=== PATIENT | female | born 1935 | race Caucasian/White ===

== ENCOUNTER 2021-05-16 10:25 | Inpatient (IN) | payer MEDICARE, OTHER ==
[~2021-05-16] VITALS: Ht 167.6 cm; Wt 61.5 kg
[2021-05-16 10:45] LABS: BASO # 0.1 (0.0-0.2); BASO % 0.8 % (0.0-2.0); EOS # 0.4 (0.0-0.7); EOS % 5.3 % (0-4.0); GRAN # 3.8 (1.4-6.5); GRAN % 57.3 % (42.2-75.2); HEMATOCRIT 38.2 % (37.0-47.0); HEMOGLOBIN 12.6 g/dl (12.5-16.0); LYMPH # 1.8 (1.2-3.4); LYMPH % 27.5 % (20.0-51.0); MEAN CELL VOLUME 97 fl (80.0-100.0); MEAN CORPUSCULAR HEMOGLOBIN 32 pg (27.0-31.0); MEAN CORPUSCULAR HGB CONC 33 g/dl (33.0-37.0); MEAN PLATELET VOLUME 12.1 fl (7.4-10.4); MONO # 0.6 (0.1-0.6); MONO % 8.9 % (1.7-9.3); PLATELET COUNT 147 K/mm3 (130-400); RED BLOOD COUNT 3.92 M/mm3 (4.10-5.30); REDCELL DISTRIBUTION WIDTH-CV 12.7 % (11.5-14.5)
[2021-05-16 10:51] LABS: INR 1.1 (0.8-3.0); PROTHROMBIN TIME 11.8 SECONDS (9.7-12.8)
[2021-05-16 11:03] LABS: BILIRUBIN,TOTAL 0.6 mg/dL (0.0-1.0); C-REACTIVE PROTEIN 0.6 mg/dL (0.0-0.9); CALCIUM 9.4 mg/dL (8.4-10.2); CREATININE, serum 1.12 (0.52-1.25); TOTAL PROTEIN 6.7 gm/dL (6.4-8.2)
[2021-05-16] MEDS ORDERED: ATIVAN 0.50.5 MG/TAB PO (11:13)
[2021-05-16] MEDS ORDERED: CRESTOR20 MG PO (11:13)
[2021-05-16] MEDS ORDERED: COZAAR100 MG PO (11:14)
[2021-05-16] MEDS ORDERED: ARICEPT10 MG PO (11:14)
[2021-05-16] MEDS ORDERED: CALCIUM 600 MG1 EAC2 PO (11:15)
[2021-05-16] MEDS ORDERED: K-PHOS ORIGINA500 MG PO (11:16)
[2021-05-16 11:30] LABS: POTASSIUM 4.2 mmol/L (3.4-5.0)
[2021-05-16] MEDS ORDERED: EPA FISH OIL1 SGL PO (13:56)
[2021-05-16 15:55] VITALS: BP 156/96; PULSE 81; TEMP 98.2
[2021-05-16 17:48] LABS: COLLECTION METHOD CATHETER
[2021-05-16 17:55] LABS: LACTIC ACID 1.1 mmol/L (0.4-2.0)
[2021-05-16 17:57] LABS: MUCOUS Present /lpf; PH 6 (5-8); SQUAMOUS EPITHELIAL None Seen /hpf; URINE APPEARANCE Hazy; URINE BACTERIA Rare /hpf; URINE BILIRUBIN Negative (NEGATIVE); URINE BLOOD Negative (NEGATIVE); URINE COLOR Yellow; URINE GLUCOSE Negative (NEGATIVE); URINE KETONE Negative (NEGATIVE); URINE LEUKOCYTE ESTERASE Negative (NEGATIVE); URINE NITRATE Negative (NEGATIVE); URINE PROTEIN(semi-quant) Negative (NEGATIVE); URINE RBC 0-2 /hpf; URINE UROBILINOGEN Negative (NEGATIVE)
[2021-05-16 18:09] LABS: TRICYCLIC ANTIDEPRESS URINE NEGATIVE
--- NOTE | 2021-05-16 19:45 | NUR ---
Patient admitted this afternoon. Patient has mostly slept. Arouable to touch, not voice. She does not follow commands. Attempted to get patient to bedside commode 2 assist very weak. did not void. Ua obtained via straight cath. Ekg done, labs drawn with 2 assist. combative at times. She does not like to be touched. Her supportive spouse at bedside. high fall risk protocol followed. rounded, hospitalist consulted & notifed about consult. Orders obtained. Critical troponin called to Sara. Bedside report to Leena BOLES
[2021-05-16 20:15] VITALS: BP 145/99; PULSE 92; TEMP 101.2
--- NOTE | 2021-05-16 21:00 | NUR ---
PT UNABLE TO TAKE ATORVASTATIN, REMAINS TOO SLEEPY. DID WAKE UP BRIEFLY AND SQUEEZE THIS NURSES HAND. HAS SL TO LEFT UPPER ARM, FLUSHED WELL. LOVENOX GIVEN ORDERED. BED ALARM ON.
--- NOTE | 2021-05-16 22:45 | NUR ---
REPORTED ELEVATED TROPONIN TO CHIKI LEDESMA, ORDER FOR CARDIOLOGY CONSULT.
--- NOTE | 2021-05-16 23:13 | NUR ---
DR ARAYA NOTIFIED OF CONSULT. NEW ORDERS RECEIVED.
[2021-05-16 23:51] VITALS: BP 120/100; PULSE 92; TEMP 100.8
[2021-05-17] VITALS (8 sets, daily range): BP systolic 130–146; BP diastolic 57–110; PULSE 60–97; TEMP 97.8–99.5
--- NOTE | 2021-05-17 00:43 | NUR ---
PT HAS HAD ELEVATED TEMP, CRUSHED TYLENOL 650MG AND PLACED IN APPLESAUCE, PT TAKES WITHOUT PROBLEM.
--- NOTE | 2021-05-17 01:30 | NUR ---
ASA GIVEN IN APPLESAUCE, PT TAKES WITHOUT PROBLEM.
--- NOTE | 2021-05-17 06:00 | NUR ---
HAS BEEN RESTING THIS SHIFT. NOT IMPULSIVE, BED ALARM ON. SL REMAINS TO LEFT UPPER ARM. HAS HAD SCANT ORAL INTAKE.
[2021-05-17 07:01] LABS: BASO % 0.5 % (0.0-2.0); EOS # 0.1 (0.0-0.7); EOS % 0.9 % (0-4.0); GRAN % 64.6 % (42.2-75.2); HEMATOCRIT 39.1 % (37.0-47.0); HEMOGLOBIN 12.8 g/dl (12.5-16.0); LYMPH # 1.7 (1.2-3.4); LYMPH % 22.3 % (20.0-51.0); MEAN CELL VOLUME 98 fl (80.0-100.0); MEAN CORPUSCULAR HEMOGLOBIN 32 pg (27.0-31.0); MEAN CORPUSCULAR HGB CONC 33 g/dl (33.0-37.0); MEAN PLATELET VOLUME 12.8 fl (7.4-10.4); MONO # 0.9 (0.1-0.6); MONO % 11.3 % (1.7-9.3); PLATELET COUNT 147 K/mm3 (130-400); REDCELL DISTRIBUTION WIDTH-CV 12.7 % (11.5-14.5)
[2021-05-17 07:13] LABS: ALBUMIN 3.9 gm/dL (3.5-5.0); BILIRUBIN,TOTAL 0.6 mg/dL (0.0-1.0); CALCIUM 9.2 mg/dL (8.4-10.2); CREATININE, serum 1.21 (0.52-1.25); POTASSIUM 4.6 mmol/L (3.4-5.0); TOTAL PROTEIN 6.7 gm/dL (6.4-8.2)
[2021-05-17 07:32] LABS: TROPONIN-I 0.139 ng/mL (0.000-0.035)
--- NOTE | 2021-05-17 08:04 | NUR ---
CRITICAL TROPONIN CALLED TO [facility]
--- NOTE | 2021-05-17 14:18 | NUR ---
dry dip worker met with patient's spouse and called son, Azar [phone] to discuss discharge planning. Patient lives with spouse, who is her caregiver, and family is supportive of care. Worker provided information on patient's level of care and that patient is currently a 3 person transfer to the bathroom. Azar will talk with his siblings and father and rack worker with their wishes. Worker provided information on available nursing facilities in [facility] and private pay agency assistance. Physical and occupational therapies are working with patient.
--- NOTE | 2021-05-17 19:27 | NUR ---
Patient resting in bed. She was able to take po medication crushed today with pudding, she preferred over applesauce. Patient did seem to cough with drinking water. Patient called out to go the bathroom multiple times today. Assist to bedside commode 3 assist. Total assist need. She never voided on commode, but was incontinent of urine. She had a BM today as well. hygiene provided. Patient MRI completed this afternoon. Ativan PRN given prior to relax patient. Patient did not have Lumbar puncute today due MRI findings. did review results with patient . Patient does have noted weakness to left side. Patient hits at staff only with right arm. High fall risk protocol followed today. Alarms on. Bedside report to Leena.
--- NOTE | 2021-05-17 20:15 | NUR ---
PT AWAKE, TAKING OFF HER GOWN AND TELEMETRY. PLACED BACK IN GOWN AND MITTS APPLIED. PT UNSURE WHERE SHE IS, REORIENTATION ATTEMPTED. BED ALARM ON. SL TO LEFT UPPER ARM INTACT.
--- NOTE | 2021-05-17 20:47 | NUR ---
PT REMAINS AGITATED. HS MEDS GIVEN CRUSHED IN VANILLA PUDDING, TAKES WITHOUT CHOKING. ATIVAN 0.25MG IVP GIVEN FOR ANXIETY.
--- NOTE | 2021-05-17 22:00 | NUR ---
PT MORE CALM, MITTS OFF AT THIS TIME.
[2021-05-18 04:30] VITALS: BP 112/50; PULSE 56; TEMP 98.1
--- NOTE | 2021-05-18 05:00 | NUR ---
PT AWAKE, TAKING OFF GOWN AND TELEMETRY. INCONTINENT OF URINE, KERON CARE GIVEN AND NEW ATTENDS ON. PT RESISTIVE WITH STAFF, HITTING AND KICKING WITH RT LEG. PLACED IN MITTS.
--- NOTE | 2021-05-18 07:00 | NUR ---
PT RESTING QUIETLY. BED ALARM ON.
[2021-05-18 07:09] LABS: BASO # 0.1 (0.0-0.2); BASO % 0.8 % (0.0-2.0); EOS # 0.2 (0.0-0.7); EOS % 2.7 % (0-4.0); GRAN # 4.4 (1.4-6.5); GRAN % 61.6 % (42.2-75.2); HEMATOCRIT 39.2 % (37.0-47.0); HEMOGLOBIN 12.9 g/dl (12.5-16.0); LYMPH # 1.7 (1.2-3.4); LYMPH % 23.7 % (20.0-51.0); MEAN CELL VOLUME 98 fl (80.0-100.0); MEAN CORPUSCULAR HEMOGLOBIN 32 pg (27.0-31.0); MEAN CORPUSCULAR HGB CONC 33 g/dl (33.0-37.0); MEAN PLATELET VOLUME 12.3 fl (7.4-10.4); MONO # 0.8 (0.1-0.6); MONO % 11.1 % (1.7-9.3); PLATELET COUNT 123 K/mm3 (130-400); RED BLOOD COUNT 4.01 M/mm3 (4.10-5.30); REDCELL DISTRIBUTION WIDTH-CV 12.8 % (11.5-14.5)
[2021-05-18 07:30] LABS: CALCIUM 8.7 mg/dL (8.4-10.2); CREATININE, serum 1.12 (0.52-1.25)
[2021-05-18 08:15] VITALS: BP 140/92; PULSE 61; TEMP 98.2
--- NOTE | 2021-05-18 08:48 | NUR ---
Radiology in for carotid US
--- NOTE | 2021-05-18 09:00 | NUR ---
Patient in bed resting. Mitts on. Attempts to swing at staff during assessment. Refusing breakfast. Denies further needs at this time.
--- NOTE | 2021-05-18 10:49 | NUR ---
Updated spouse on patient.
[2021-05-18 11:43] VITALS: BP 148/83; PULSE 75; TEMP 98.1
--- NOTE | 2021-05-18 11:56 | NUR ---
Patient up to [facility], x 3 assist.
--- NOTE | 2021-05-18 13:16 | NUR ---
Hospitalist and team in to see patient
--- NOTE | 2021-05-18 14:01 | NUR ---
Patient's sonAzar, calls nursing home social worker and states spouse and the family wish for skilled care upon discharge and desire [facility] and [facility]. [facility] states they cannot accept patient. Awaitng screening from [facility].
[2021-05-18 16:34] VITALS: BP 132/57; PULSE 72; TEMP 97.7
--- NOTE | 2021-05-18 17:15 | NUR ---
Dr. Baird in to see patient.
--- NOTE | 2021-05-18 19:06 | NUR ---
Patient doing well throughout the day. Spouse at bedside. Patient will occassionally repeat questions. Mitts off throughout the day. Has been resting intermittently through the day. No further needs at this time. reported off to production supervisor off shift.
[2021-05-18 19:44] VITALS: BP 96/52; PULSE 87; TEMP 97.5
--- NOTE | 2021-05-18 22:00 | NUR ---
Pt. laying in bed. PT. is alert and confused. Pt. does not appear to be in pain per FLACC. INT to lt. upper arm patent. Pericare provided at this time. Pt. repositioned for comfort.
[2021-05-19 00:07] VITALS: BP 115/60; PULSE 65; TEMP 98.2
[2021-05-19 04:46] VITALS: BP 109/70; PULSE 77; TEMP 97.5
[2021-05-19 06:56] LABS: BASO % 0.6 % (0.0-2.0); EOS # 0.1 (0.0-0.7); EOS % 1.2 % (0-4.0); GRAN # 4.8 (1.4-6.5); GRAN % 71.4 % (42.2-75.2); HEMATOCRIT 37.6 % (37.0-47.0); HEMOGLOBIN 12.4 g/dl (12.5-16.0); LYMPH # 1.1 (1.2-3.4); MEAN CELL VOLUME 96 fl (80.0-100.0); MEAN CORPUSCULAR HEMOGLOBIN 32 pg (27.0-31.0); MEAN CORPUSCULAR HGB CONC 33 g/dl (33.0-37.0); MEAN PLATELET VOLUME 12.5 fl (7.4-10.4); MONO # 0.6 (0.1-0.6); MONO % 9.6 % (1.7-9.3); PLATELET COUNT 142 K/mm3 (130-400); RED BLOOD COUNT 3.91 M/mm3 (4.10-5.30); REDCELL DISTRIBUTION WIDTH-CV 12.8 % (11.5-14.5)
[2021-05-19 07:10] LABS: CALCIUM 8.9 mg/dL (8.4-10.2); CREATININE, serum 1.1 (0.52-1.25); POTASSIUM 3.9 mmol/L (3.4-5.0)
[2021-05-19 08:44] VITALS: BP 130/70; PULSE 77; TEMP 97.6
--- NOTE | 2021-05-19 09:21 | NUR ---
PT AGITATED THIS AM R/T EEG SETUP. PT TOOK AM MEDS CRUSHED IN APPLESAUCE. PRN ATIVAN GIVEN PER ORDERS. PT CONTINUES TO BE CONFUSED AND COMBATIVE WHEN AGITATED. THIS AM PT WAS CALM DURING ASSESSMENTS AND MED PASS.
--- NOTE | 2021-05-19 09:38 | NUR ---
[facility] cannot accept if patient's combativeness continues. foot worker met with interdisciplinary team and advised of the above information. Psychiatry consult for today. Patient had a good evening and took morning medications without difficulty. Will continue to update [facility] with progress.
[2021-05-19 12:07] VITALS: BP 145/60; PULSE 69; TEMP 97.9
--- NOTE | 2021-05-19 16:40 | NUR ---
anode worker spoke with patient's son, Azar, and spouse regarding reasoning for non acceptance of nursing facilities at this time. Family will reach out to private hired agency to see if arrangements can be made for care in the home. We continue with plans for assisted at this time. Awaiting a pyschiatry consult. Continue with plan for assisted placement.
[2021-05-19 16:48] VITALS: BP 165/75; PULSE 73; TEMP 98.1
--- NOTE | 2021-05-19 18:07 | NUR ---
PT REMAINS CONFUSED AND COMBATIVE. DR. BALDERAS IN TO SEE PT THIS PM. SEE NOTE. NEW ORDERS RECIEVED.
--- NOTE | 2021-05-19 20:00 | NUR ---
Pt. laying in bed at this time. Pt. is Alert and confused at this time. Pt. does get slightly upset when attempting to take blood pressure. Pt. does calm down. Pt. does not appear to be in pain per FLACC scale. Pt. given melatonin to help pt. sleep. Pt. denies further needs. Pt. repositioned for comfort. Call light within reach, bed alarm on.
[2021-05-19 20:38] VITALS: BP 97/64; PULSE 87; TEMP 97.1
[2021-05-20 00:35] VITALS: BP 133/84; PULSE 77; TEMP 97.3
[2021-05-20 07:29] LABS: CALCIUM 9.4 mg/dL (8.4-10.2); CREATININE, serum 0.98 (0.52-1.25); POTASSIUM 3.4 mmol/L (3.4-5.0)
[2021-05-20 07:34] LABS: HEMATOCRIT 37.8 % (37.0-47.0); HEMOGLOBIN 13.1 g/dl (12.5-16.0); MEAN CELL VOLUME 94 fl (80.0-100.0); MEAN CORPUSCULAR HEMOGLOBIN 33 pg (27.0-31.0); MEAN CORPUSCULAR HGB CONC 35 g/dl (33.0-37.0); MEAN PLATELET VOLUME 12.4 fl (7.4-10.4); PLATELET COUNT 123 K/mm3 (130-400); RED BLOOD COUNT 4.01 M/mm3 (4.10-5.30); REDCELL DISTRIBUTION WIDTH-CV 12.8 % (11.5-14.5)
[2021-05-20 07:39] VITALS: BP 155/75; PULSE 65; TEMP 97.7
--- NOTE | 2021-05-20 08:30 | NUR ---
PATIENT IS ALERT AND ORIENTED TO SELF, OTHERWISE VERY CONFUSED. PATIENT CLOSE TO NURSES STATION WITH BED ALARM ON AND YELLOW GOWN. PATIENT IS ON TELE AND GENERAL DIET. PATIENT HAS BED ALARM ON AND IS MORE PLEASANT TODAY THAN YESTERDAY/LAST NIGHT. NO FURTHER NEEDS AT THIS TIME. HEAD TO TOE ASSESSMENT COMPLETE. CALL LIGHT WITHIN REACH.
--- NOTE | 2021-05-20 09:30 | NUR ---
PATIENT GIVEN BED BATH. PATIENT HAD POOR APPETITE AND REFUSED TO EAT BREAKFAST. NO OTHER NEEDS AT THIS TIME.
--- NOTE | 2021-05-20 10:40 | NUR ---
farmworker fruit contact Billy at [facility] to get a verbal update on patient. farmworker fruit faxed documentaion for team to review.
[2021-05-20 12:00] VITALS: BP 147/58; PULSE 59; TEMP 97.7
--- NOTE | 2021-05-20 12:35 | NUR ---
AT BEDSIDE. PATIENT DRINKING MILKSHAKE WITH ENSURE.
--- NOTE | 2021-05-20 13:08 | NUR ---
Initial visit; Patient thanked Jewelry [employer]pper for looking in on her, offering God's blessings and keeping her in [employer]elry [employer]pper's prayers.
[2021-05-20 15:31] VITALS: BP 122/39; PULSE 67; TEMP 97.5
[2021-05-20 18:40] VITALS: BP 156/110; PULSE 155; TEMP 97.5
--- NOTE | 2021-05-20 18:43 | NUR ---
PT BECAME TACH RUNNING 150'S NOTIFIED JOSE;IT SHREDDER TENDER NEW ORDERS RECIEVED.
--- NOTE | 2021-05-20 19:00 | NUR ---
THIS RT CALLED EDWARD THOMPSON APRN WITH RESULTS OF EKG STATING ACTUE KS
--- NOTE | 2021-05-20 19:21 | NUR ---
PT HAD POSSIBLE NM AEB EKG, EDWARD CAMERON APRN IN ROOM MANAGING PATIENT. FULL REPORT TO DAVID BOLES NOC SHIFT AND SHE TOOK OVER PT CARE @1910. FACULTY PHYSICIAN NOTIFIED OF POSSIBLE TRANSFER NEEDS. JONATHAN BOLESENTRY LEVEL SOFTWARE DEVELOPER SPOKE WITH REMY ON PLANS.
[2021-05-20 19:23] VITALS: BP 106/92; PULSE 80
[2021-05-20 21:20] LABS: PROTHROMBIN TIME 10.9 SECONDS (9.7-12.8)
[2021-05-21] VITALS (8 sets, daily range): BP systolic 95–151; BP diastolic 39–96; PULSE 56–120; TEMP 96.5–98.5
[2021-05-21 00:45] LABS: CALCIUM 9.3 mg/dL (8.4-10.2); CREATININE, serum 1.01 (0.52-1.25); MAGNESIUM 2.3 mg/dL (1.6-2.3); POTASSIUM 4.1 mmol/L (3.4-5.0)
--- NOTE | 2021-05-21 03:11 | NUR ---
At the beginning of the shift patient went aflutter with ST depression, heart rate of 150's. Amber the PA was called and ordered Metoprolol 5mg IVP EKG done and another Lopressor 50mg orsl given. Patient converted to NSR and EKG shows no ST elevation or depression. PA talked to the family and site operations manager she supposed to go down to ICU for further evaluation and she stayed on the floor. She was impulsive at first but she got trazodone and aricept and she was able to get sleep. Heparin drip was ordered and she is at 11ml/hr. Patient is comfortably sleeping in bed with fall precautions in placed. Call light is within reach and will continue to monitor. She is on NSR in tele at the moment.
--- NOTE | 2021-05-21 04:50 | NUR ---
Heparin drip Stopped at 0450 for Heparin xa result is 1.82 PA Amber is aware. Next Hepxa draw is 1100am.
--- NOTE | 2021-05-21 07:00 | NUR ---
appears to be sleeping, bedside shift report received from RAMANA Valdez
--- NOTE | 2021-05-21 08:10 | NUR ---
report of HepXa called and is still elevated at 1.42, will redraw at 0900
--- NOTE | 2021-05-21 08:44 | NUR ---
On 05/20/2021, [facility] decline to accept patient. Worker met with spouse and advised. reclamation worker gave referrals to [facility] this date.
--- NOTE | 2021-05-21 08:45 | NUR ---
was incontinent of urine and stool, hygiene provided, full assessment completed, see interventions for further info, has multiple bruises over all of her body, is oriented to self but nothing more, lab in and blood drawn
--- NOTE | 2021-05-21 09:45 | NUR ---
Dr Haider and care team in to see patient, and Dr Abernathy
--- NOTE | 2021-05-21 09:50 | NUR ---
awakens easily, po meds given crushed and in applesauce and takes without difficulty, then goes back to sleep quickly
--- NOTE | 2021-05-21 13:20 | NUR ---
arouses when enter room and call her names, she takes meds crushed and in applesauce, will order lunch
--- NOTE | 2021-05-21 13:50 | NUR ---
attempted to give her something to eat and she refuses and starts to swing at nurse, son in to visit and will try to help her eat
--- NOTE | 2021-05-21 14:09 | NUR ---
she refused to eat for her son also, therapy in to work with her and she refuses all help
--- NOTE | 2021-05-21 15:06 | NUR ---
spoilage worker faxed referrals to [facility] ([place]), [facility] ([place]) and [facility] ([place]). Medina at [facility] called stating they can accept patient. [employer] date is Thursday 05/24 for transfer. Medina requested for Cam to contact her to go over financial aspects. Patient's family notified. Patient's son Azar called stating him and his father have a meeting set up for Tuesday 05/22 to tour the facility. spoilage worker advised for Azar to inquire about having a family memeber ride with her during transport. spoilage worker will touch base with the family Monday.
--- NOTE | 2021-05-21 15:42 | NUR ---
bedside shift report given to RAMANA Sutton
--- NOTE | 2021-05-21 15:50 | NUR ---
Bedside shift report received from RAMANA Lee. Patient's son requested water while in the room. Patient drank a decent amount of water. RAMANA Lee, stated this was the most alert she had seen the patient today. This RN ordered the patient a chocolate ensure.
--- NOTE | 2021-05-21 23:47 | NUR ---
Assessemnt completed, patient is confused and disoriented. VS are stable she get so impulsive when RN tried to clean her up. She was soked and she is playing with her poop. RN called help and it tooks 3 person to help her clean up. She was kicking biting and punching. She had her Trazodone dose at night. Will continue to monitor. Fall precautions in placed bed larm is on and call light within reach. Will continue to monitor.
[2021-05-22 08:00] VITALS: BP 131/87; PULSE 60; TEMP 98.6
--- NOTE | 2021-05-22 09:50 | NUR ---
Patient repositioned in bed & cleaned up. Sat up for breakfast. No interest. Crushed am meds & given with a few bites of ice cream. Patient remains combative at times. rounded & made aware of bradycardia-no new orders. rounded. Status update given
[2021-05-22 11:29] VITALS: BP 118/53; PULSE 69; TEMP 98.1
--- NOTE | 2021-05-22 14:30 | NUR ---
Patient assisted with clean up of incontinent stool & urine. Patient sat up for lunch & able to give her a few bites of food. Patient prefered to feed herself with some assist. She drank her glass of tea, milk, & juice. Her supportive spouse at bedside. Holding her hand to try & help prevent her from hitting and kicking at staff. She remains stronger on her right side. Left sided weakness noted. aware we were unable to obtain AM labs, patient was stuck 4 times unsuccessfully. labs cancelled. Will monitor.
--- NOTE | 2021-05-22 15:34 | NUR ---
Atttmped to file & cleanse patietn fingernails that appear to be soiled by stool. Patient did not like, and became combative. Will try again
[2021-05-22 16:00] VITALS: BP 133/51; PULSE 59; TEMP 97.7
--- NOTE | 2021-05-22 19:12 | NUR ---
Patient had another incontinent stool & urine. Full bed bath provided. Attempted to assist with dinner, refused. She did drink liquids, likes chocolate ensure. Attempted again to trim nails & cleanse hands. Patient repositioned in bed. alarms on. Bedside report to Tavo.
[2021-05-22 19:32] VITALS: BP 130/54; PULSE 77; TEMP 98
[2021-05-22 23:28] VITALS: BP 120/59; PULSE 69; TEMP 98.1
[2021-05-23 04:03] VITALS: BP 125/58; PULSE 59; TEMP 98.7
--- NOTE | 2021-05-23 05:34 | NUR ---
PT IN BED. NO N/V. VERY DISORIENTED. NON-COMPLIANT AT TIMES AND OCCASIONALLY COMBATIVE. NO C/O PAIN. MINIMAL MOVEMENT OF LUE.
[2021-05-23 06:50] LABS: CALCIUM 9.9 mg/dL (8.4-10.2); CREATININE, serum 1.13 (0.52-1.25); MAGNESIUM 2.3 mg/dL (1.6-2.3); POTASSIUM 4.2 mmol/L (3.4-5.0)
[2021-05-23 08:42] VITALS: BP 143/102; PULSE 60; TEMP 97.5
[2021-05-23 11:28] VITALS: BP 133/53; PULSE 70; TEMP 97.8
[2021-05-23 16:05] VITALS: BP 98/56; PULSE 79; TEMP 97.8
--- NOTE | 2021-05-23 16:45 | NUR ---
PT RECEIVED IN BED. NO S/S OF DISTRESS NOTICED. PT IS CONFUSED. PT TAKES OF HER GOWN, TELE MONITOR, AND COVERS. PT ATTEMPTS TO GET OUT OF BED. PT HAS NOT EATEN MUCH OF HER MEALS, SNACKS OFFERED INBETWEEN HER MEALS. PT GOT A BED BATH. PERICARE PROVIDED NEEDED DUE TO INCONTINENCE. COMFORT MEASURES IN PLACE. BED IN LOW POSITION. BED ALARM ON. CALL-LIGHT IN REACH. WILL CONTINUE TO MONITOR.
[2021-05-23 19:53] VITALS: BP 131/59; PULSE 80; TEMP 98.7
--- NOTE | 2021-05-23 20:34 | NUR ---
Assessment completed, alert and disoriented. Patient is on telemetry on NSR. Generalized bruising noted. Impulsive at sometimes, swallow her pills crushed and mix with chocolate pudding. Finish the bottle of ensure. Doesn't eat much. Fall porecautions observed bed alarm is on and call light is within reach. Continue to monitor.
[2021-05-23 23:48] VITALS: BP 96/64; PULSE 54; TEMP 98.7
[2021-05-24 07:20] VITALS: BP 165/58; PULSE 61; TEMP 97.3
[2021-05-24] MEDS ORDERED: PLAVIX 75MG TAB75 MG PO (09:06)
[2021-05-24] MEDS ORDERED: LIPITOR 40MG TA40 MG PO (09:06)
[2021-05-24] MEDS ORDERED: RANEXA 500MG T500 MG PO (09:06)
[2021-05-24] MEDS ORDERED: LOPRESSOR 550 MG/TAB PO (09:07)
[2021-05-24] MEDS ORDERED: NITRO-DUR0.4 MG/PAT TD (09:07)
[2021-05-24] MEDS ORDERED: TYLENOL 325MG325 MG PO (09:08)
[2021-05-24] MEDS ORDERED: ASPIRIN 81M81 MG/TA2 PO (09:08)
[2021-05-24] MEDS ORDERED: MELATIN 3 MG-11 TAB PO (09:09)
[2021-05-24] MEDS ORDERED: CRESTOR20 MG PO (09:21)
[2021-05-24 09:34] VITALS: BP 165/58; PULSE 61; TEMP 97.3
--- NOTE | 2021-05-24 09:52 | NUR ---
Medina with [facility] accepts patient to skilled care this date and their facility van will transport at 10:00am. Worker spoke to son, Azar and spouse (on speaker phone) and advised of the discharge/transfer time. Azar states he will transport spouse and meet patient at the facility. Worker presented the IM and Azar states they are taking patient's durable power of patent attorney to [facility].
--- NOTE | 2021-05-24 10:15 | NUR ---
Patient is discharging [facility] in [place]. All belongings packed up and sent with patient. Report called to Shirin BOLES. Info packet sent with patient.
== END 2021-05-24 10:15 | DRG 64 ==
LOC: COL.ER 10:25 → SURG 12:28
PROVIDERS: Family Medicine; Internal Medicine; Nurse Practitioner Family; Physician Assistant; ADMIT Student in an Organized Health Care Education/Training Program
DX: I63.9 Cerebral infarction, unspecified (principal); I21.4 Non-ST elevation (NSTEMI) myocardial infarction; S06.9X1A Unspecified intracranial injury with loss of consciousness of 30 minutes or less, initial encounter; F05 Delirium due to known physiological condition; I48.92 Unspecified atrial flutter; E44.1 Mild protein-calorie malnutrition; I08.1 Rheumatic disorders of both mitral and tricuspid valves; I10 Essential (primary) hypertension; F03.90 Unspecified dementia, unspecified severity, without behavioral disturbance, psychotic disturbance, mood disturbance, and anxiety; E11.9 Type 2 diabetes mellitus without complications; E78.00 Pure hypercholesterolemia, unspecified; R41.3 Other amnesia; R00.0 Tachycardia, unspecified; F41.9 Anxiety disorder, unspecified; E78.5 Hyperlipidemia, unspecified; R79.89 Other specified abnormal findings of blood chemistry; Z20.822 Contact with and (suspected) exposure to COVID-19; W18.30XA Fall on same level, unspecified, initial encounter; Y92.9 Unspecified place or not applicable; Z90.710 Acquired absence of both cervix and uterus; Z87.891 Personal history of nicotine dependence
CPT/HCPCS: OP; 99222; 99231-AI; 99232-AI; 99233-AI; 99239; A9585; G0378; J0290; J0696; J1200; J1630; J1644; J1650; J2060; J3370; J7050